=== PATIENT | female | born 1965 | race African-American/Black ===

== ENCOUNTER 2017-12-04 10:41 | Emergency (ER) | payer OTHER, SELFPAY ==
[2017-12-04 10:53] VITALS: BP 142/86; PULSE 117; RESP 18; TEMP 36.7; O2SAT 98; BMI 25.4
--- NOTE | 2017-12-04 10:53 | ED.EXTPRO ---
HPI - Extremity Problem General Chief complaint: Extremity Problem,Nontraumatic Stated complaint: finger is purple Time Seen by Provider: 12/04/17 10:53 Source: patient Mode of arrival: ambulatory Limitations: no limitations History of Present Illness HPI Narrative: This is a 52-year-old female comes to the emergency department with concern for purple discoloration of the left thumb. Patient states been present for about 4 days. Initially it was quite painful and then has some been less painful but is still uncomfortable. 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 patient does have a history of diabetes and is insulin dependent, Raynaud's as well as vasculitis and dermatomyositis. She sees a packer inspector 3 [facility] in her prior care was to [facility] with her prior amputations. she consulted with her packer inspector over the phone, who recommended that she come to the emergency department for evaluation. her packer inspector is Dr. Benjamin. her primary care physician is Dr. Saul. patient denies any fevers. No chest pain or shortness of breath. She has not had any nausea or vomiting no new GI or urinary issues. She has not had any other skin color changes or trauma. MD Complaint: extremity pain Onset (ago): day(s) (4) Pain Consistency: constant Location: left (thumb) Radiation: none Relieving factors: nothing Associated symptoms: denies other symptoms Related Data Previous Rx's Medication Instructions Recorded amlodipine 5 mg PO DAILY #20 tab MDD 10mg 12/04/17 Allergies Allergy/AdvReac Type Severity Reaction Status Date / Time No Known Drug Allergies Allergy Verified 12/04/17 10:59 Review of Systems Review of Systems All systems reviewed & are unremarkable except as noted in HPI and below Constitutional Denies chills, Denies fever(s), Denies lethargy and Denies weakness Cardiovascular Denies dyspnea and Denies dyspnea on exertion Respiratory Denies cough, Denies dyspnea, Denies dyspnea on exertion and Denies wheezing Gastrointestinal Gastrointestinal: Denies abdominal pain, Denies change in bowel habits, Denies diarrhea, Denies nausea and Denies vomiting Musculoskeletal Denies numbness and Denies tingling Comments: Left thumb has been slightly swollen, there has been purple discoloration of the distal thumb a little bit of whiteness at the very most distal portion. Integumentary/Breasts Denies lesions, Denies rash, Reports skin swelling and Reports other (cyanosis of distal thumb) Neurologic Denies numbness, Denies tingling and Denies weakness Allergic/Immunologic Denies wheezing FOR[facility]LY [facility] Social History Smoking Status: Unknown if ever smoked Exam Initial Vital Signs Initial Vital Signs: Vital Signs Temperature 98.1 F 12/04/17 10:53 Pulse Rate 117 H 12/04/17 10:53 Respiratory Rate 18 12/04/17 10:53 Blood Pressure 142/86 H 12/04/17 10:53 Pulse Oximetry 98 12/04/17 10:53 Resp Effort & Inspection: normal respiratory effort, able to speak in complete sentences, no respiratory distress and no use of accessory muscles Auscultation: clear to auscultation bilaterally, no rales, no rhonchi and no wheezes Cardio Rate: regular rate Rhythm: regular rhythm Heart Sounds: no click, no gallops, no murmurs and no rubs Pulses: normal peripheral pulses GI Inspection: non-distended Palpation: soft, no hepatosplenomegaly, No guarding, No pulsatile mass and No tender Auscultation: normal bowel sounds Skin General: No fluctuance, pallor (very distal), No warm and cool/cold (distal thumb left hand) Lesions: lesions noted Trauma: lacerations and/or abrasions noted Wounds: wound noted Neuro General: alert, oriented x3, gait normal and no focal motor deficits Cranial Nerves: CN's II-XI intact bilaterally and sense of smell intact Speech: speech normal Motor: muscle tone normal throughout and strength 5/5 throughout Sensory Exam: no sensory deficits noted Extrem Right upper extremity: normal to inspection ( except for distal finger amputation) Left upper extremity: normal to inspection (except for hand), full ROM, cyanosis (left thumb), edema (mild of distal left thumb) and hand ( patient has healed distal amputation the middle finger on the left, she also has cyanosis of the distal left thumb with a small amount pallor at the very most distal portion of the finger. It is slightly swollen. It is mildly tender to touch. Patient has 2+ radial pulse.) Details: abnormal to inspection, normal capillary refill ( In all other 4 fingers), tendon exam normal, vascular exam Details: radial pulse present Details: 2+, abnormal capillary refill Details: of the thumb and cyanosis Details: of the thumb; not cool and normal ROM of fingers; no abrasions, no lacerations and no puncture wound Course Orders Ordered: ED Orders 12/04/17 11:03 US periph venous up extrem lt Stat 12/04/17 11:10 Complete Blood Count AUTO DIFF Stat Comprehensive Metabolic Panel Stat Lactate (Lactic Acid) Stat Reevaluation(s) Reevaluation #1: reviewed imaging and lab work patient did update me that she had been decreasing her prednisone and saw Dermatology yesterday in the increase her prednisone up to another 10 mg. also in the process of contacting [facility] to figure out if she needs to be seen emergently today or early this week. Time: 12:48 Reevaluation #2: Discussed with patient recommendations. After discussion she states she is on nifedipine, she is also on sildenafil as well as pentoxifylline. we discussed that these are the appropriate therapies. Likely the amlodipine at this point will not be helpful as the nifedipine is also a calcium channel sheryl. She asked if she could take it in conjunction Um we did discuss that it would cause hypotension most likely Um if the dose is too high but she is comfortable with this. We also discussed that we can call back and chat with the packer inspector but she defers and states that she will return for re-evaluation. She has also been in contact with the rheumatology office. We also discussed if she is not having any improvement or she has worsening she can return at any point for re-evaluation or to see myself tomorrow For re-evaluation. Time: 13:57 Consultations Consultation #1: Call the [facility] rheumatology. Spoke with Dr. Mckeon at [phone]. He recommends nitroglycerin ointment if not always done. A calcium channel sheryl at maximum dose to be 10 mg of amlodipine once daily but would probably started 5 mg. If this was still not helpful could potentially at sildenafil the patient's blood pressure was handling it appropriately. There is some other medications that we can also add on top of that. We discussed if patient needs to come down to the hospital for observation. At this time they feel that we can probably give her 1 or 2 days of calcium channel sheryl and reassess. If patient is worsening they would recommend transfer. At this time she does have a follow-up on the 13 of December with her packer inspector Dr. Benjamin but if she is not improving or is worsening needs to be seen sooner either as an outpatient emergently or in the hospital. He does not feel that a vascular consultation would be helpful based on her history of Raynaud's and that they would be able to do much. Time: 12:48 Vital Signs - 8 hr 12/04/17 13:30 12/04/17 14:16 12/04/17 14:17 Pulse Rate 103 H 105 H 110 H Respiratory Rate 12 16 20 Blood Pressure 134/84 Blood Pressure [Right Arm] 128/85 134/84 Pulse Oximetry 99 99 100 MDM - Extremity (Nontraumatic) Lab Data Result diagrams: 12/04/17 11:10 12/04/17 11:10 Lab Results 12/04/17 12/04/17 12/04/17 Range/Units 11:10 11:10 11:10 WBC 10.3 (4.5-11.0) X10^3/uL RBC 3.74 L (4.0-5.2) X10^6/uL Hgb 11.0 L (12.0-16.0) g/dL Hct 33.6 L (36-46) % MCV 90.0 (80-100) fL MCH 29.4 (26-34) PG MCHC 32.7 (30-36) % RDW 14.5 (11.6-14.8) % Plt Count 475 H (150-400) X10^3/uL Neut % (Auto) 82.7 H (50-75) % Lymph % (Auto) 8.3 L (25-40) % Ralls % (Auto) 8.1 (3-14) % Eos % (Auto) 0.6 L (2-4) % Baso % (Auto) 0.3 (0-2) % Neut # (Auto) 8500 H (5440-9735) /uL Sodium 140 (137-145) mmol/L Potassium 3.8 (3.4-5.1) mmol/L Chloride 104 (98-107) mmol/L Carbon Dioxide 24 (22-32) mmol/L BUN 16 (7-17) mg/dL Creatinine 0.60 (0.52-1.04) mg/dL Estimated GFR > 60.0 (>60) mL/min BUN/Creatinine Ratio 26.7 H (6-22) Glucose 272 H (70-100) mg/dL Lactate 1.3 (0.7-2.1) mmol/L Calcium 9.8 (8.4-10.2) mg/dL Total Bilirubin 0.4 (0.2-1.3) mg/dL AST 26 (14-36) IU/L ALT 34 (9-52) IU/L Alkaline Phosphatase 132 H (38-126) U/L Total Protein 7.8 (6.3-8.2) g/dL Albumin 3.9 (3.5-5.0) g/dL Globulin 3.9 (1.7-4.1) g/dL Albumin/Globulin Ratio 1.0 (1.0-2.8) MDM Narrative Medical decision making narrative: Patient is likely having a Raynaud's flare, this was discussed with Rheumatology at [facility]. Sounds like patient is taking a great nifedipine, sildenafil appear toxic clean although this was not elucidated until after he spoke with Rheumatology. They had recommended either nifedipine or amlodipine, sildenafil and pentoxifylline. Other than that there was not a lot of intervention medication [place]. We did discuss whether not patient should have a vascular consultation and they felt that this would not be helpful as it is more of a localized reaction. They air suspicion for vasculitis was much lower. We did discuss her lab work, her imaging which included Doppler and triphasic arterial and did not show any signs of occlusion on ultrasound. Patient's CBC, CMP and lactate were also not elevated. Patient is understandably concerned as this is her thumb which she uses quite extensively. I did discuss that she should come back for re-evaluation tomorrow Um as they felt that she did need to be transferred today. If she felt that she was worsening rapidly or not improving we can re-contact tomorrow. Discharge Plan Departure Patient Disposition: Home Clinical Impression: Paroxysmal digital cyanosis Discharge Date/Time: 12/04/17 14:17 Interventions: ED Discharge Assessment Last Done: 12/04/17 14:17 Activity Restrictions/Additional Instructions: Return for follow-up in 24-48 hours for re-evaluation. If your symptoms are rapidly worsening return immediately to the emergency department. Rheumatology at [facility] has recommended that we start you on amlodipine a calcium channel sheryl at 5 mg once daily. If you're tolerating this medication well they would like you to start taking 2 tablets once daily after 2 or 3 days. Continue to use her nitroglycerin ointment and home remedies for Raynaud symptoms. Also call 1st thing Wednesday morning to see if they would like to move her appointment up from to a sooner date from December 13. If you're feeling lightheaded, passing out, chest pain or short of breath stop the amlodipine. Prescriptions: New amlodipine 5 mg tablet 5 mg PO DAILY MDD 10mg Qty: 20 RF: 0
--- NOTE | 2017-12-04 11:03 | DI.US.S_ITS ---
PROCEDURE: US PERIPH VENOUS UP EXTREM LT INDICATIONS: DISCOLORED THUMB TECHNIQUE: Real-time imaging, as well as color and pulse Doppler interrogation, was performed of the left upper extremity deep veins from the inferior neck to the antecubital fossa. COMPARISON: None. FINDINGS: The internal jugular vein, visualized portions of the subclavian vein, axillary, and brachial veins are free of intraluminal thrombus. Where physically possible, the veins are normally compressible. Color and pulse Doppler demonstrate normal intraluminal flow, with expected phasicity and pulsatility. Additional scanning of the cephalic and basilic veins of the superficial system demonstrate normal compressibility, without thrombus. The left brachial artery, radial artery and ulnar artery are patent with triphasic waveform. IMPRESSION: No DVT in the left upper extremity. Dictated by: Caesar Ray M.D. on 12/04/2017 at 12:50 Approved by: Caesar Ray M.D. on 12/04/2017 at 12:52
[2017-12-04 11:24] LABS: Add Manual Diff / Slide Review NO; Basophils Percent Auto 0.3 % (0-2); Eosinophils Percent Auto 0.6 % (2-4); Hematocrit 33.6 % (36-46); Lymphocytes Percent Auto 8.3 % (25-40); Mean Corpuscular HGB Conc 32.7 % (30-36); Mean Corpuscular Hemoglobin 29.4 PG (26-34); Monocytes Percent Auto 8.1 % (3-14); Neutrophils Absolute Auto 8500 /uL (3000-5900); Neutrophils Percent Auto 82.7 % (50-75); Platelet Count 475 X10^3/uL (150-400); Red Blood Cell Count 3.74 X10^6/uL (4.0-5.2); Red Cell Distribution Width 14.5 % (11.6-14.8); White Blood Cell Count 10.3 X10^3/uL (4.5-11.0)
[2017-12-04 11:34] LABS: Alanine Aminotransferase 34 IU/L (9-52); Albumin 3.9 g/dL (3.5-5.0); Alkaline Phosphatase 132 U/L (38-126); Aspartate Aminotransferase 26 IU/L (14-36); BUN Creatinine Ratio 26.7 (6-22); Bilirubin Total 0.4 mg/dL (0.2-1.3); Blood Urea Nitrogen 16 mg/dL (7-17); Calcium 9.8 mg/dL (8.4-10.2); Carbon Dioxide 24 mmol/L (22-32); Chloride 104 mmol/L (98-107); Estimated Glomerular Filt Rate > 60.0 mL/min (>60); Globulin 3.9 g/dL (1.7-4.1); Glucose 272 mg/dL (70-100); HEMOLYSIS < 15 (0-50); Lactate (Lactic Acid) 1.3 mmol/L (0.7-2.1); Potassium 3.8 mmol/L (3.4-5.1); Sodium 140 mmol/L (137-145); Total Protein 7.8 g/dL (6.3-8.2)
[2017-12-04 13:30] VITALS: BP 128/85; PULSE 103; RESP 12; O2SAT 99
[2017-12-04 14:16] VITALS: BP 134/84; PULSE 105; RESP 16; O2SAT 99
[2017-12-04 14:17] VITALS: BP 134/84; PULSE 110; RESP 20; O2SAT 100
== END 2017-12-04 14:17 | disposition home or self-care (01) ==
PROVIDERS: Emergency Provider Emergency Medicine; PCP Internal Medicine
DX: I73.00 Raynaud's syndrome without gangrene (principal)
CPT/HCPCS: 36591; 80053; 83605; 85025; 93971; 99283; 99284

== ENCOUNTER 2017-12-05 16:23 | Emergency (ER) | payer OTHER, SELFPAY ==
[2017-12-05 16:31] VITALS: BP 187/102; PULSE 99; RESP 15; TEMP 37.1; O2SAT 100; BMI 25.4
--- NOTE | 2017-12-05 21:55 | ED.RECABL ---
HPI - Recheck/Abnormal Lab/Rx <ANISA Buenrostro - Last Filed: 12/05/17 22:02> General Chief Complaint: Recheck/Abnormal Lab/Rx Stated Complaint: follow up. States left thumb was purple Time Seen by Provider: 12/05/17 17:19 Source: patient Mode of arrival: ambulatory Limitations: no limitations History of Present Illness HPI narrative: Patient presents for re-evaluation of her thumb. She is a 52-year-old female who comes in with purple coloration of her left thumb for 4 days. She has a complicated medical history including diabetes, Raynaud's, vasculitis, dermatocytis. She was seen here yesterday and states she is coming back for recheck. She denies any changes in states her family is about the same. She has been using nifedipine, amlodipine, nitroglycerin on her thumb, as well as prednisone. Yesterday in [facility] rheumatology was contacted. She denies any other symptoms Yesterday she had a CBC, CMP, lactate as well as the venous ultrasound of her left upper extremity. Related Data Previous Rx's Medication Instructions Recorded amlodipine 5 mg PO DAILY #20 tab MDD 10mg 12/04/17 Allergies Allergy/AdvReac Type Severity Reaction Status Date / Time No Known Drug Allergies Allergy Verified 12/05/17 16:31 Review of Systems <ANISA Buenrostro - Last Filed: 12/05/17 22:02> Review of Systems GENERAL: Denies chills, fatigue, malaise, fever, sweats. HEENT: Denies sinus pain, ear pain, sore throat, difficulty swallowing, dizziness. RESPIRATORY: Denies dyspnea, cough, wheezing, hemoptysis, sputum. CARDIOVASCULAR: Denies chest pain, palpitations, orthopnea, edema, GASTROINTESTINAL: Denies nausea, vomiting, abdominal pain, diarrhea, constipation, melena. : Denies dysuria, frequency, incontinence, hematuria, urinary retention. MUSCULOSKELETAL: See HPI SKIN: See HPI NEUROLOGIC: Denies weakness, headache, numbness, change in speech, confusion, seizures, incoordination. PSYCHIATRIC: No concerning psychosocial issues. 12 point review of systems is negative except for those stated above Exam <ANISA Buenrostro - Last Filed: 12/05/17 22:02> Narrative Exam Narrative: GENERAL: This is a well-nourished, well-developed patient, sitting in hallway HEAD: Atraumatic. Normocephalic. No temporal or scalp tenderness. EYES: Pupils equal round and reactive. Extraocular motions intact. No scleral icterus. No injection or drainage. ENT: Nose without bleeding, purulent drainage or septal hematoma. Throat without erythema, tonsillar hypertrophy or exudate. Uvula midline. Airway patent. NECK: Trachea midline. No JVD or lymphadenopathy. Supple, nontender, no meningeal signs. CARDIOVASCULAR: Regular rate and rhythm without murmurs, gallops, or rubs. RESPIRATORY: Clear to auscultation. Breath sounds equal bilaterally. No wheezes, rales, or rhonchi. GASTROINTESTINAL: Abdomen soft, non-tender, nondistended. No hepato-splenomegaly, or palpable masses. No guarding. EXTREMITIES: 2+ radial pulses noted. BACK: Nontender without deformity or crepitance. No flank tenderness. NEURO: AOx3. SKIN: Said noticed noted left thumb distal phalanx. Pallor noted at the very tip of the left thumb. Tip of thumb is very cool. Initial Vital Signs Initial Vital Signs: Vital Signs Temperature 98.8 F 12/05/17 16:31 Pulse Rate 99 H 12/05/17 16:31 Respiratory Rate 15 12/05/17 16:31 Blood Pressure 187/102 H 12/05/17 16:31 Pulse Oximetry 100 12/05/17 16:31 <Arabella Castañeda DO - Last Filed: 12/08/17 07:53> Initial Vital Signs Initial Vital Signs: Vital Signs Temperature 98.8 F 12/05/17 16:31 Pulse Rate 99 H 12/05/17 16:31 Respiratory Rate 15 12/05/17 16:31 Blood Pressure 187/102 H 12/05/17 16:31 Pulse Oximetry 100 12/05/17 16:31 Course <ANISA Buenrostro - Last Filed: 12/05/17 22:02> Vital Signs - 8 hr 12/05/17 16:31 Temperature 98.8 F Pulse Rate 99 H Respiratory Rate 15 Blood Pressure 187/102 H Pulse Oximetry 100 <Arabella Castañeda DO - Last Filed: 12/08/17 07:53> Vital Signs - 8 hr 12/05/17 16:31 Temperature 98.8 F Pulse Rate 99 H Respiratory Rate 15 Blood Pressure 187/102 H Pulse Oximetry 100 MDM - Recheck/Abnormal Lab/Rx <ABBIE Buenrostro-BC - Last Filed: 12/05/17 22:02> [facility] Narrative Medical decision making narrative: Patient presented for them recheck. I offered to call [facility] rheumatology to get the recommendations given that her thumb has not improved. She stated she would rather speak with them herself tomorrow. I discussed at length that following up with them might lead to better tissue outcomes. However she states that she has no idea what they are doing to rather speak with herself. She declined to wait for me to consult [facility]. She also declined to wait for discharge paperwork. Discharge Plan Departure Patient Disposition: Home Clinical Impression: Paroxysmal digital cyanosis Discharge Date/Time: 12/05/17 17:56 Interventions: ED Discharge Assessment Last Done: 12/05/17 17:54 Prescriptions: No Action amlodipine 5 mg tablet 5 mg PO DAILY MDD 10mg Qty: 20 RF: 0 Referrals: Yovana Leyva MD [Primary Care Provider] - <Arabella Castañeda DO - Last Filed: 12/08/17 07:53> Cosign ED Attending Cosignature Attestation: I was immediately available in the department for consultation. This documentation has been reviewed and I agree with assessment and plan. Supervised by Arabella Castañeda DO
--- NOTE | 2017-12-05 22:02 | ED_ITS ---
HPI - Recheck/Abnormal Lab/Rx <ANISA Buenrostro - Last Filed: 12/05/17 22:02> General Chief Complaint: Recheck/Abnormal Lab/Rx Stated Complaint: follow up. States left thumb was purple Time Seen by Provider: 12/05/17 17:19 Source: patient Mode of arrival: ambulatory Limitations: no limitations History of Present Illness HPI narrative: Patient presents for re-evaluation of her thumb. She is a 52- year-old female who comes in with purple coloration of her left thumb for 4 days. She has a complicated medical history including diabetes, Raynaud's, vasculitis, dermatocytis. She was seen here yesterday and states she is coming back for recheck. She denies any changes in states her family is about the same. She has been using nifedipine, amlodipine, nitroglycerin on her thumb, as well as prednisone. Yesterday in [facility] rheumatology was contacted. She denies any other symptoms Yesterday she had a CBC, CMP, lactate as well as the venous ultrasound of her left upper extremity. Related Data Previous Rx's Medication Instructions Recorded amlodipine 5 mg PO DAILY #20 tab MDD 10mg 12/04/17 Allergies Allergy/AdvReac Type Severity Reaction Status Date / Time No Known Drug Allergies Allergy Verified 12/05/17 16:31 Review of Systems <ANISA Buenrostro - Last Filed: 12/05/17 22:02> Review of Systems GENERAL: Denies chills, fatigue, malaise, fever, sweats. HEENT: Denies sinus pain, ear pain, sore throat, difficulty swallowing, dizziness. RESPIRATORY: Denies dyspnea, cough, wheezing, hemoptysis, sputum. CARDIOVASCULAR: Denies chest pain, palpitations, orthopnea, edema, GASTROINTESTINAL: Denies nausea, vomiting, abdominal pain, diarrhea, constipation, melena. : Denies dysuria, frequency, incontinence, hematuria, urinary retention. MUSCULOSKELETAL: See HPI SKIN: See HPI NEUROLOGIC: Denies weakness, headache, numbness, change in speech, confusion, seizures, incoordination. PSYCHIATRIC: No concerning psychosocial issues. 12 point review of systems is negative except for those stated above Exam <ANISA Buenrostro - Last Filed: 12/05/17 22:02> Narrative Exam Narrative: GENERAL: This is a well-nourished, well-developed patient, sitting in hallway HEAD: Atraumatic. Normocephalic. No temporal or scalp tenderness. EYES: Pupils equal round and reactive. Extraocular motions intact. No scleral icterus. No injection or drainage. ENT: Nose without bleeding, purulent drainage or septal hematoma. Throat without erythema, tonsillar hypertrophy or exudate. Uvula midline. Airway patent. NECK: Trachea midline. No JVD or lymphadenopathy. Supple, nontender, no meningeal signs. CARDIOVASCULAR: Regular rate and rhythm without murmurs, gallops, or rubs. RESPIRATORY: Clear to auscultation. Breath sounds equal bilaterally. No wheezes , rales, or rhonchi. GASTROINTESTINAL: Abdomen soft, non-tender, nondistended. No hepato-splenomegaly , or palpable masses. No guarding. EXTREMITIES: 2+ radial pulses noted. BACK: Nontender without deformity or crepitance. No flank tenderness. NEURO: AOx3. SKIN: Said noticed noted left thumb distal phalanx. Pallor noted at the very tip of the left thumb. Tip of thumb is very cool. Initial Vital Signs Initial Vital Signs: Vital Signs Temperature 98.8 F 12/05/17 16:31 Pulse Rate 99 H 12/05/17 16:31 Respiratory Rate 15 12/05/17 16:31 Blood Pressure 187/102 H 12/05/17 16:31 Pulse Oximetry 100 12/05/17 16:31 <Arabella Castañeda DO - Last Filed: 12/08/17 07:53> Initial Vital Signs Initial Vital Signs: Vital Signs Temperature 98.8 F 12/05/17 16:31 Pulse Rate 99 H 12/05/17 16:31 Respiratory Rate 15 12/05/17 16:31 Blood Pressure 187/102 H 12/05/17 16:31 Pulse Oximetry 100 12/05/17 16:31 Course <ANISA Buenrostro - Last Filed: 12/05/17 22:02> Vital Signs - 8 hr 12/05/17 16:31 Temperature 98.8 F Pulse Rate 99 H Respiratory Rate 15 Blood Pressure 187/102 H Pulse Oximetry 100 <Arabella Castañeda DO - Last Filed: 12/08/17 07:53> Vital Signs - 8 hr 12/05/17 16:31 Temperature 98.8 F Pulse Rate 99 H Respiratory Rate 15 Blood Pressure 187/102 H Pulse Oximetry 100 MDM - Recheck/Abnormal Lab/Rx <ABBIE Buenrostro-BC - Last Filed: 12/05/17 22:02> [facility] Narrative Medical decision making narrative: Patient presented for them recheck. I offered to call [facility] rheumatology to get the recommendations given that her thumb has not improved. She stated she would rather speak with them herself tomorrow. I discussed at length that following up with them might lead to better tissue outcomes. However she states that she has no idea what they are doing to rather speak with herself. She declined to wait for me to consult [facility]. She also declined to wait for discharge paperwork. Discharge Plan Departure Patient Disposition: Home Clinical Impression: Paroxysmal digital cyanosis Discharge Date/Time: 12/05/17 17:56 Interventions: ED Discharge Assessment Last Done: 12/05/17 17:54 Prescriptions: No Action amlodipine 5 mg tablet 5 mg PO DAILY MDD 10mg Qty: 20 RF: 0 Referrals: Yovana Leyva MD [Primary Care Provider] - <Arabella Castañeda DO - Last Filed: 12/08/17 07:53> Cosign ED Attending Cosignature Attestation: I was immediately available in the department for consultation. This documentation has been reviewed and I agree with assessment and plan. Supervised by Arabella Castañeda DO
== END 2017-12-05 17:56 | disposition home or self-care (01) ==
PROVIDERS: Emergency Provider Nurse Practitioner Family; PCP Internal Medicine
DX: I73.00 Raynaud's syndrome without gangrene (principal)
CPT/HCPCS: 99282

== ENCOUNTER 2018-03-21 12:32 | Emergency (ER) | payer OTHER, SELFPAY ==
[2018-03-21 12:34] VITALS: BP 147/88; PULSE 99; RESP 18; TEMP 36.9; O2SAT 100
--- NOTE | 2018-03-21 15:43 | PC.NURSE ---
Pt denies any specific event to cause pain. States it has just been getting worse. pain started in lower medial back and has been spreading to the sides and up her back. Denies any urinary symptoms. Denies flank pain, denies change or difficulty with bowels. Pt states pain is worse at night and she just cannot take it any more.
--- NOTE | 2018-03-21 15:47 | ED.BACK ---
HPI - Back Pain/Injury <ROSANNE Hillman - Last Filed: 03/21/18 22:40> General Chief Complaint: Back Pain/Injury Stated Complaint: back pain x30 days Time Seen by Provider: 03/21/18 12:48 Source: patient Mode of arrival: ambulatory Limitations: no limitations History of Present Illness HPI Narrative: 52 year old female with history of diabetes and is a nonsmoker here for complaint of having pain to her back area for the last month. She has been seen for this by her primary care provider twice she was given a muscle relaxer and ibuprofen for discomfort. She reports this is not helped much for discomfort. She denies any trauma to the area. She states the pain started after she bent over to fruit picker an item. She denies any loss of bladder or bowel control. She is ambulatory into the emergency room. She was also given exercises by primary care provider to perform she states that the exercises causes discomfort so she has not perform them. She denies any other concerns or complaints at this timeframe. MD Complaint: back pain Related Data Home Medications Medication Instructions Recorded Confirmed acyclovir 200 mg PO BID 03/21/18 03/21/18 amlodipine 10 mg PO DAILY 03/21/18 03/21/18 aspirin 325 mg PO DAILY 03/21/18 03/21/18 calcium carbonate-vitamin D3 2 tab PO DAILY 03/21/18 03/21/18 [Calcium 500 + D] desonide 1 applic TOPICAL DIRECTED 03/21/18 03/21/18 hydroxychloroquine 200 mg PO BID 03/21/18 03/21/18 ibuprofen 400 mg PO BID 03/21/18 03/21/18 insulin glargine [Lantus Solostar 28 units SUBCUT QPM 03/21/18 03/21/18 U-100 Insulin] mupirocin 1 applic TOPICAL BID 03/21/18 03/21/18 mycophenolate mofetil 1,500 mg PO TID 03/21/18 03/21/18 nitroglycerin 2 g TOPICAL TID 03/21/18 03/21/18 oxycodone 5 mg PO Q4H PRN 03/21/18 03/21/18 pantoprazole 20 mg PO DAILY 03/21/18 03/21/18 pentoxifylline 400 mg PO TID 03/21/18 03/21/18 prednisone 30 mg PO BID 03/21/18 03/21/18 sildenafil (antihypertensive) 20 mg PO TID 03/21/18 03/21/18 sulfamethoxazole-trimethoprim 1 tab PO MOWEFR 03/21/18 03/21/18 tacrolimus 1 applic TOPICAL QPM 03/21/18 03/21/18 Previous Rx's Medication Instructions Recorded hydrocodone-acetaminophen [[place]] 1 tab PO Q6H PRN #10 tab 03/21/18 Allergies Allergy/AdvReac Type Severity Reaction Status Date / Time No Known Drug Allergies Allergy Verified 12/05/17 16:31 Review of Systems <ROSANNE Hillman - Last Filed: 03/21/18 22:40> Constitutional Denies chills, Denies fever(s), Denies lethargy and Denies weakness Eyes Denies change in vision, Denies eye discharge, Denies irritation and Denies loss of vision ENT Ears, Nose, Mouth, and Throat: Denies change in voice, Denies neck pain and Denies sore throat Cardiovascular Denies chest pain, Denies irregular heart rhythm, Denies lightheadedness, Denies palpitations, Denies dyspnea, Denies dyspnea on exertion and Denies orthopnea Respiratory Denies cough, Denies dyspnea, Denies dyspnea on exertion and Denies wheezing Gastrointestinal Gastrointestinal: Denies abdominal pain, Denies change in bowel habits, Denies diarrhea, Denies nausea and Denies vomiting Genitourinary Denies hematuria, Denies flank pain, Denies urinary incontinence and Denies urinary urgency Musculoskeletal Denies neck pain Comments: Lower back pain Integumentary/Breasts Denies pruritus, Denies erythema, Denies rash and Denies wounds Neurologic Denies confusion, Denies loss of vision and Denies weakness Psychiatric Denies anxiety, Denies confusion, Denies depression, Denies homicidal ideation and Denies suicidal ideation Endocrine Denies palpitations Hematologic/Lymphatic Denies easy bruising Allergic/Immunologic Denies wheezing Exam <ROSANNE Hillman - Last Filed: 03/21/18 22:40> Initial Vital Signs Initial Vital Signs: Vital Signs Temperature 98.5 F 03/21/18 12:34 Pulse Rate 99 H 03/21/18 12:34 Respiratory Rate 18 03/21/18 12:34 Blood Pressure 147/88 H 12/31/18 12:34 Pulse Oximetry 100 12/31/18 12:34 Const General: cooperative and well developed Nutritional Appearance: well nourished Orientation: alert, awake, oriented x3 and not confused HENMN Mouth: oral mucosae normal and moist mucous membranes Eyes Conjunctivae: conjunctivae normal Sclera: sclerae normal Pupils: PERRL EOM: EOM intact bilaterally Resp Effort & Inspection: normal respiratory effort, able to speak in complete sentences, no respiratory distress and no use of accessory muscles Auscultation: clear to auscultation bilaterally, no rales, no rhonchi and no wheezes Cardio Rate: regular rate Rhythm: regular rhythm Heart Sounds: no click, no gallops, no murmurs and no rubs Pulses: normal peripheral pulses Back/Spine/Pelvis Other: Lumbar region with no signs of trauma. No deformities. No tenderness to the midline. Tenderness to bilateral paraspinal area. Distal sensation is intact. Distal pulses are intact. Distal range of motion is intact. Skin General: no rashes or lesions noted, No jaundice and No petechiae Neuro General: alert, oriented x3, gait normal and no focal motor deficits Speech: speech normal <Arabella Castañeda DO - Last Filed: 03/22/18 17:06> Initial Vital Signs Initial Vital Signs: Vital Signs Temperature 98.5 F 03/21/18 12:34 Pulse Rate 99 H 03/21/18 12:34 Respiratory Rate 18 03/21/18 12:34 Blood Pressure 147/88 H 03/21/18 12:34 Pulse Oximetry 100 03/21/18 12:34 Course <ROSANNE Hillman - Last Filed: 03/21/18 22:40> Orders Ordered: ED Orders 03/21/18 16:00 Urine Microscopic Stat Vital Signs - 8 hr 03/21/18 16:43 Pulse Rate 113 H Respiratory Rate 18 Blood Pressure [Right Arm] 139/77 Pulse Oximetry 100 <DO Teodoro Singh Last Filed: 03/22/18 17:06> Orders Ordered: ED Orders 03/21/18 16:00 Urine Microscopic Stat Vital Signs - 8 hr 03/21/18 16:43 Pulse Rate 113 H Respiratory Rate 18 Blood Pressure [Right Arm] 139/77 Pulse Oximetry 100 MDM - Back Pain/Injury <ROSANNE Hillman - Last Filed: 03/21/18 22:40> Lab Data Lab Results 03/21/18 Range/Units 16:00 Urine RBC None seen (0-5/HPF) Urine WBC 0-1/hpf (0-5/HPF) Ur Squamous Epith Cells 1-5 /hpf Urine Bacteria None seen (None) Ur Culture Indicated? Cult not indicated Micro UA Comment Not Reportable Urine Dip Bedside Urine Glucose 1000 mg/dl Bedside Urine Bilirubin - Negative Bedside Urine Ketone - Negative Urine Specific [place] 1.025 Bedside Urine Occult Blood - Negative Bedside Urine pH 6.0 Bedside Urine Protein +/- 15 Bedside Urine Urobilinogen - Negative Bedside Urine Nitrite - Negative Bedside Urine Leukocytes - Negative Esterase MDM Narrative Medical decision making narrative: Signs and symptoms presents as lumbar strain into bilateral paraspinals. Patient is encouraged to use her muscle relaxers as directed. She is given a small amount of [place] for breakthrough pain into help her with sleep at night. She is encouraged not to use in conjunction with the muscle relaxers. Follow up with primary care provider later this week. Due to length of time that she has been having symptoms recommend having discussion with primary care provider about MRI of the lumbar spine area. Gentle range of motion to the painful area to help keep muscles loose. For any worsening symptoms return to the emergency room. <Arabella Castañeda, DO - Last Filed: 03/22/18 17:06> Lab Data Lab Results 03/21/18 Range/Units 16:00 Urine RBC None seen (0-5/HPF) Urine WBC 0-1/hpf (0-5/HPF) Ur Squamous Epith Cells 1-5 /hpf Urine Bacteria None seen (None) Ur Culture Indicated? Cult not indicated Micro UA Comment Not Reportable Urine Dip Bedside Urine Glucose 1000 mg/dl Bedside Urine Bilirubin - Negative Bedside Urine Ketone - Negative Urine Specific [place] 1.025 Bedside Urine Occult Blood - Negative Bedside Urine pH 6.0 Bedside Urine Protein +/- 15 Bedside Urine Urobilinogen - Negative Bedside Urine Nitrite - Negative Bedside Urine Leukocytes - Negative Esterase Discharge Plan Departure Patient Disposition: Home Clinical Impression: Strain of lumbar region Discharge Date/Time: 03/21/18 17:40 Interventions: ED Discharge Assessment Last Done: 03/21/18 17:38 Instructions: DI for Low Back Pain Activity Restrictions/Additional Instructions: Signs and symptoms presents as lumbar strain into bilateral paraspinals. use muscle relaxers as directed and [id number] ibuprofen. Small amount of [place] is prescribed for breakthrough pain use as directed do not use in conjunction with the muscle relaxers. Follow up with primary care provider later this week. Due to length of time of having symptoms recommend having discussion with primary care provider about MRI of the lumbar spine area. Gentle range of motion to the painful area to help keep muscles loose. For any worsening symptoms return to the emergency room. Prescriptions: New hydrocodone-acetaminophen [[place]] 5-325 mg tablet 1 tab PO Q6H PRN (Reason: pain) Qty: 10 RF: 0 No Action mycophenolate mofetil 500 mg tablet 1,500 mg PO TID RF: 0 aspirin 325 mg tablet,delayed release (DR/EC) 325 mg PO DAILY RF: 0 amlodipine 10 mg tablet 10 mg PO DAILY RF: 0 acyclovir 200 mg capsule 200 mg PO BID RF: 0 mupirocin 2 % ointment 1 applic Topical BID RF: 0 hydroxychloroquine 200 mg tablet 200 mg PO BID RF: 0 oxycodone 5 mg tablet 5 mg PO Q4H PRN (Reason: pain) RF: 0 sildenafil (antihypertensive) 20 mg tablet 20 mg PO TID RF: 0 insulin glargine [Lantus Solostar U-100 Insulin] 100 unit/mL (3 mL) insulin pen 28 units subcut QPM RF: 0 prednisone 10 mg Tablet 30 mg PO BID RF: 0 ibuprofen 200 mg Capsule 400 mg PO BID RF: 0 sulfamethoxazole-trimethoprim 800-160 mg tablet 1 tab PO MOWEFR RF: 0 pentoxifylline 400 mg Tablet Extended Release 400 mg PO TID RF: 0 pantoprazole 20 mg Tablet,Delayed Release (Dr/Ec) 20 mg PO DAILY RF: 0 desonide 0.05 % Ointment 1 applic TOPICAL DIRECTED RF: 0 tacrolimus 0.1 % Ointment 1 applic TOPICAL QPM RF: 0 nitroglycerin 2 % Ointment 2 g Topical TID RF: 0 calcium carbonate-vitamin D3 [Calcium 500 + D] 500 mg(1,250mg) -200 unit Tablet 2 tab PO DAILY RF: 0 Referrals: Yovana Leyva MD [Primary Care Provider] - <Arabella Castañeda DO - Last Filed: 03/22/18 17:06> Cosign ED Attending Cosignature Attestation: I was immediately available in the department for consultation. This documentation has been reviewed and I agree with assessment and plan. Supervised by Arabella Castañeda, DO
[2018-03-21 16:02] LABS: Bacteria Urine None Seen; RBC Urine None Seen (0-5/HPF)
[2018-03-21 16:10] LABS: Culture Indicated Urine Cult Not Indicated; Squamous Epithelial Cell Urine 1-5 /HPF; WBC Urine 0-1/HPF (0-5/HPF)
[2018-03-21 16:43] VITALS: BP 139/77; PULSE 113; RESP 18; O2SAT 100
== END 2018-03-21 17:40 | disposition home or self-care (01) ==
PROVIDERS: Emergency Provider Nurse Practitioner Family; PCP Internal Medicine
DX: J21.0 Acute bronchiolitis due to respiratory syncytial virus (principal); J21.9 Acute bronchiolitis, unspecified
CPT/HCPCS: 81003; 81015; 99283